=== PATIENT | male | born 1995 | race Caucasian/White ===

== ENCOUNTER 2023-12-23 20:25 | Inpatient (IN) | payer MEDICAID, OTHER ==
[~2023-12-23] VITALS: Ht 162.6 cm; Wt 75.0 kg
[2023-12-23 21:42] LABS: BASOPHILS % (AUTO) 0.7 % (0.0-2.0); EOSINOPHILS % (AUTO) 0 % (1.0-6.0); HEMATOCRIT 40.3 % (41-53); HEMOGLOBIN 13.6 g/dL (13.5-17.5); LYMPHOCYTES # (AUTO) 2.4 K/uL (1.0-4.8); LYMPHOCYTES % (AUTO) 22.1 % (22.0-44.0); MEAN CORPUSCULAR HGB CONC 33.8 G/dL (31.0-37.0); MEAN CORPUSCULAR VOLUME 86 fL (80-100); MONOCYTES # (AUTO) 0.6 K/uL (0.1-1.0); MONOCYTES % (AUTO) 5.5 % (2.0-9.0); NEUTROPHILS # (AUTO) 7.9 K/uL (1.8-7.7); NEUTROPHILS % (AUTO) 71.7 % (40.0-70.0); PLATELET COUNT (AUTO) 468 K/uL (150-450); RED BLOOD CELL COUNT(AUTO) 4.69 MIL/uL (4.50-5.90); RED CELL DISTRIBUTION WIDTH 14.9 % (11.5-14.5); WHITE BLOOD COUNT (AUTO) 11.1 K/uL (4.5-11.0)
[2023-12-23 21:50] LABS: ANION GAP 15 mmol/L (8-16); CALCIUM, TOTAL 8.5 mg/dL (8.8-10.5); CARBON DIOXIDE 28 mmol/L (22-29); CHLORIDE 100 mmol/L (98-107); CREATININE 0.85 mg/dL (0.60-1.30); GLOMERULAR FILTR. RATE CALC > 60 mL/min (>60); GLUCOSE,RANDOM 104 mg/dL (70-110); POTASSIUM 3.8 mmol/L (3.5-5.1); SODIUM SERUM 143 mmol/L (136-145); UREA NITROGEN, BLOOD 6 mg/dL (7-18)
[2023-12-23 21:54] LABS: ALCOHOL, BLOOD (SERUM) 186 mg/dL (0-10)
[2023-12-23 21:55] LABS: ALANINE AMINOTRANSFERASE 48 U/L (12-78); ALBUMIN 4.2 g/dL (3.4-5.0); ALKALINE PHOSPHATASE 65 U/L (46-116); ASPARTATE AMINOTRANSFERASE 48 U/L (15-37); BILIRUBIN,TOTAL 0.5 mg/dL (0.1-1.0); LIPASE 27 U/L (16-77)
[2023-12-23 21:58] LABS: COVID AG,FIA SOURCE NASAL SWAB; TROPONIN I-HIGH SENSITIVITY 13 ng/L (<76)
[2023-12-23 22:15] LABS: SARS-COV2 (COVID) ANTIGEN,FIA Negative (Negative)
[2023-12-23] MEDS: LORazepam 2 MG TABLET PO ONE (23:52)
[2023-12-24] VITALS (8 sets, daily range): BP systolic 133–155; BP diastolic 96–102; PULSE 98–116; RESP 18–20; TEMP 98–98.4; O2SAT 95–100
[2023-12-24] MEDS ORDERED: HALOPERIDOL 5 MG TABLET PO PRN (02:00)
[2023-12-24 08:47] LABS: APPEARANCE,URINE CLEAR (CLEAR); BILIRUBIN,URINE NEGATIVE (NEGATIVE); COLOR,URINE LIGHT YELLOW (YELLOW); GLUCOSE, URINE (UA) NEGATIVE (NEGATIVE); KETONES,URINE =>150 mg/dL (NEGATIVE); LEUKOCYTE ESTERASE ,URINE NEGATIVE (NEGATIVE); NITRATE,URINE NEGATIVE (NEGATIVE); OCCULT BLOOD,URINE NEGATIVE (NEGATIVE); PROTEIN,URINE 30-70 mg/dL (NEGATIVE); SPECIFIC GRAVITIY, URINE 1.016 (1.003-1.030); UROBILINOGEN,URINE <=1.0 mg/dL (<=1.0)
[2023-12-24 08:53] LABS: ALCOHOL, URINE DRUG SCREEN NEGATIVE (NEGATIVE); AMPHET/METH SCREEN,URINE NEGATIVE (NEGATIVE); BARBITURATE SCREEN, URINE NEGATIVE (NEGATIVE); BENZODIAZEPINES SCREEN,URINE NEGATIVE (NEGATIVE); CANNABINOID SCREEN,URINE NEGATIVE (NEGATIVE); COCAINE SCREEN,URINE NEGATIVE (NEGATIVE); METHADONE SCREEN, URINE NEGATIVE (NEGATIVE); OPIATE SCREEN,URINE NEGATIVE (NEGATIVE); PHENCYCLIDINE SCREEN,URINE NEGATIVE (NEGATIVE)
[2023-12-24] MEDS ORDERED: MAG HYDROX/ALUMINUM HYD/SIMETH ES 30 ML SUSPENSION UDCUP PO PRN ×2 (12:04→12:15)
[2023-12-24] MEDS ORDERED: NICOTINE 14 MG/24 HOUR PATCH TD PRN (12:15)
[2023-12-24] MEDS ORDERED: LOPERAMIDE HCL 2 MG CAPSULE PO PRN (12:15)
[2023-12-24] MEDS ORDERED: DOCUSATE SODIUM 100 MG CAPSULE PO PRN (12:15)
[2023-12-24] MEDS ORDERED: IBUPROFEN 400 MG TABLET PO PRN (12:15)
[2023-12-24] MEDS ORDERED: MAGNESIUM HYDROXIDE SUSPENSION 30 ML UDCUP PO PRN (12:15)
[2023-12-24] MEDS ORDERED: CloNIDine HCL 0.1 MG TABLET PO PRN (12:15)
[2023-12-24] MEDS ORDERED: ALBUTEROL SULFATE HFA 90 MCG/PUFF 8 GM INHALER IH PRN (12:15)
[2023-12-24] MEDS ORDERED: GuaiFENesin/D-METHORPHAN [SUGAR-FREE] 200-20MG/10 ML SYRUP UDCUP PO PRN (12:15)
[2023-12-24] MEDS ORDERED: ACETAMINOPHEN 325 MG TABLET PO PRN (12:15)
[2023-12-24] MEDS ORDERED: PETROLATUM,WHITE 28 GM JELLY TP PRN (12:15)
[2023-12-24] MEDS: ONDANSETRON HCL 4 MG TABLET PO PRN (12:19)
[2023-12-24] MEDS: ChlordiazePOXIDE HCL 25 MG CAPSULE PO PRN (12:26)
[2023-12-24] MEDS: LORazepam 2 MG TABLET PO PRN (21:58)
[2023-12-24] MEDS: ZOLPIDEM TARTRATE 10 MG TABLET PO PRN (21:58)
[2023-12-25 02:00] VITALS: BP 150/100; PULSE 105; RESP 18; TEMP 98.4
[2023-12-25 06:00] VITALS: BP 153/102; PULSE 98; RESP 18; TEMP 98.2
[2023-12-25 06:53] VITALS: BP 149/104; PULSE 114; RESP 18; TEMP 98.4; O2SAT 98
[2023-12-25] MEDS ORDERED: ChlordiazePOXIDE HCL 25 MG CAPSULE PO PRN (07:00)
[2023-12-25 08:36] LABS: BASOPHILS % (AUTO) 0.6 % (0.0-2.0); EOSINOPHILS % (AUTO) 2.7 % (1.0-6.0); HEMATOCRIT 45.9 % (41-53); HEMOGLOBIN 15.8 g/dL (13.5-17.5); LYMPHOCYTES # (AUTO) 2.3 K/uL (1.0-4.8); LYMPHOCYTES % (AUTO) 24.6 % (22.0-44.0); MEAN CORPUSCULAR HEMOGLOBIN 29.6 pg (26.0-34.0); MEAN CORPUSCULAR HGB CONC 34.3 G/dL (31.0-37.0); MEAN CORPUSCULAR VOLUME 86 fL (80-100); MONOCYTES # (AUTO) 0.3 K/uL (0.1-1.0); MONOCYTES % (AUTO) 3.5 % (2.0-9.0); NEUTROPHILS # (AUTO) 6.5 K/uL (1.8-7.7); NEUTROPHILS % (AUTO) 68.6 % (40.0-70.0); PLATELET COUNT (AUTO) 363 K/uL (150-450); RED BLOOD CELL COUNT(AUTO) 5.32 MIL/uL (4.50-5.90); RED CELL DISTRIBUTION WIDTH 13.9 % (11.5-14.5); WHITE BLOOD COUNT (AUTO) 9.4 K/uL (4.5-11.0)
[2023-12-25 08:55] LABS: HEMOGLOBIN A1C 5.4 % (3.8-5.6)
[2023-12-25 09:11] LABS: ALANINE AMINOTRANSFERASE 58 U/L (12-78); ALBUMIN 4.2 g/dL (3.4-5.0); ALKALINE PHOSPHATASE 73 U/L (46-116); ANION GAP 10 mmol/L (8-16); ASPARTATE AMINOTRANSFERASE 69 U/L (15-37); BILIRUBIN,TOTAL 1.5 mg/dL (0.1-1.0); CALCIUM, TOTAL 9.9 mg/dL (8.8-10.5); CARBON DIOXIDE 31 mmol/L (22-29); CHLORIDE 95 mmol/L (98-107); CHOL/HDL RATIO 2.2 (4.2-7.3); CHOLESTEROL 278 mg/dL (131-200); GLOMERULAR FILTR. RATE CALC > 60 mL/min (>60); GLUCOSE,RANDOM 127 mg/dL (70-110); HDL CHOLESTEROL 129 mg/dL (40-60); LDL CHOL (CALC.) 118 mg/dL (0-130); POTASSIUM 3.7 mmol/L (3.5-5.1); SODIUM SERUM 136 mmol/L (136-145); THYROID STIMULATING HORMONE 2.48 uIU/mL (0.36-3.74); TOTAL PROTEIN, SERUM 8.5 g/dL (6.4-8.2); TRIGLYCERIDES 154 mg/dL (15-150); UREA NITROGEN, BLOOD 6 mg/dL (7-18)
[2023-12-25 09:51] VITALS: BP 149/99; PULSE 99; RESP 18; TEMP 97.5
[2023-12-25] MEDS: ChlordiazePOXIDE HCL 25 MG CAPSULE PO SCH (11:03)
[2023-12-25] MEDS: SERTRALINE HCL 50 MG TABLET PO SCH (12:30)
[2023-12-25 22:01] VITALS: BP_SYST 147; BP_SYST 149; BP_DIAS 100; BP_DIAS 101; PULSE 101; PULSE 105; RESP 18; TEMP 97.9; O2SAT 97
[2023-12-26 09:41] VITALS: BP 139/94; PULSE 92; RESP 18; TEMP 96; TEMP 97.3; O2SAT 92
[2023-12-26] MEDS: AmLODIPine BESYLATE 2.5 MG TABLET PO SCH (18:07)
[2023-12-26 21:19] VITALS: BP 134/81; PULSE 62; RESP 18; TEMP 98.1
[2023-12-26 22:03] VITALS: BP 124/81; PULSE 62; RESP 18; TEMP 98.1; O2SAT 97
[2023-12-27] MEDS ORDERED: ChlordiazePOXIDE HCL 10 MG CAPSULE PO PRN (07:00)
[2023-12-27 10:33] VITALS: BP 109/66; PULSE 94; RESP 18; TEMP 97.5; O2SAT 96
[2023-12-27 10:44] VITALS: BP 109/66; PULSE 94; RESP 18; TEMP 97.5
[2023-12-27 21:02] VITALS: BP 148/96; PULSE 80; RESP 18; TEMP 97.3; O2SAT 97
[2023-12-27 21:06] VITALS: BP 146/98; PULSE 80; RESP 18; TEMP 97.5
[2023-12-28] MEDS ORDERED: ChlordiazePOXIDE HCL 10 MG CAPSULE PO PRN (07:00)
[2023-12-28 08:20] VITALS: BP 121/81; PULSE 83; RESP 17; TEMP 97.9; O2SAT 97
[2023-12-28 20:38] VITALS: BP 148/87; PULSE 88; RESP 18; TEMP 97.8
[2023-12-28 21:43] VITALS: BP 148/89; PULSE 88; RESP 18; TEMP 97.8; O2SAT 99
[2023-12-29 08:00] VITALS: BP 132/84; PULSE 78; RESP 18; TEMP 97.8; O2SAT 98
[2023-12-29] MEDS ORDERED: SERT-439 PO (09:33)
[2023-12-29] MEDS ORDERED: AMLO2.5T96 PO (10:39)
[2023-12-29 11:13] VITALS: BP 132/84; PULSE 78; RESP 18; TEMP 97.8
== END 2023-12-29 13:35 | disposition home or self-care (01) | DRG 751 ==
LOC: EMS 20:25 → 3EI 12-24 05:37
PROVIDERS: ADMIT Psychiatry & Neurology Child & Adolescent Psychiatry; ATTEND Psychiatry & Neurology Child & Adolescent Psychiatry
PROC: GZHZZZZ Group Psychotherapy (ICD-10-PCS; principal; 2023-12-24)
DX: F33.2 Major depressive disorder, recurrent severe without psychotic features (principal); R45.851 Suicidal ideations; E83.51 Hypocalcemia; R03.0 Elevated blood-pressure reading, without diagnosis of hypertension; Z20.822 Contact with and (suspected) exposure to COVID-19; D72.829 Elevated white blood cell count, unspecified; F10.10 Alcohol abuse, uncomplicated
CPT/HCPCS: 80053; 80061; 80307; 81003; 83036; 83690; 84443; 84484; 85025; 93005; 99285; G0480; Q0162

== ENCOUNTER 2024-05-09 10:01 | Emergency (ER) | payer MEDICAID, OTHER ==
[~2024-05-09] VITALS: Ht 162.6 cm; Wt 80.0 kg
[~2024-05-09 10:01] MED LIST: AMLO2.5T96 PO; SERT-439 PO
[2024-05-09 10:07] VITALS: TEMP 98.3
[2024-05-09] MEDS ORDERED: SERT-440 PO (10:12)
[2024-05-09] MEDS ORDERED: AMLO2.5T29 PO (10:12)
[2024-05-09] MEDS ORDERED: BUPR-49 PO (10:12)
[2024-05-09 10:29] LABS: BASOPHILS % (AUTO) 0.5 % (0.0-2.0); EOSINOPHILS % (AUTO) 0.3 % (1.0-6.0); HEMATOCRIT 42.2 % (41-53); HEMOGLOBIN 13.9 g/dL (13.5-17.5); LYMPHOCYTES # (AUTO) 2.2 K/uL (1.0-4.8); LYMPHOCYTES % (AUTO) 19.9 % (22.0-44.0); MEAN CORPUSCULAR HEMOGLOBIN 26.9 pg (26.0-34.0); MEAN CORPUSCULAR HGB CONC 32.8 G/dL (31.0-37.0); MEAN CORPUSCULAR VOLUME 82 fL (80-100); MONOCYTES # (AUTO) 0.5 K/uL (0.1-1.0); MONOCYTES % (AUTO) 4.7 % (2.0-9.0); NEUTROPHILS # (AUTO) 8.3 K/uL (1.8-7.7); NEUTROPHILS % (AUTO) 74.6 % (40.0-70.0); PLATELET COUNT (AUTO) 556 K/uL (150-450); RED BLOOD CELL COUNT(AUTO) 5.14 MIL/uL (4.50-5.90); RED CELL DISTRIBUTION WIDTH 15.5 % (11.5-14.5); WHITE BLOOD COUNT (AUTO) 11.1 K/uL (4.5-11.0)
[2024-05-09 10:41] LABS: ANION GAP 13 mmol/L (8-16); CALCIUM, TOTAL 9.3 mg/dL (8.8-10.5); CARBON DIOXIDE 28 mmol/L (22-29); CHLORIDE 99 mmol/L (98-107); CREATININE 0.84 mg/dL (0.60-1.30); GLOMERULAR FILTR. RATE CALC > 60 mL/min (>60); GLUCOSE,RANDOM 108 mg/dL (70-110); POTASSIUM 3.8 mmol/L (3.5-5.1); SODIUM SERUM 140 mmol/L (136-145); UREA NITROGEN, BLOOD 7 mg/dL (7-18)
[2024-05-09 10:46] LABS: ALANINE AMINOTRANSFERASE 26 U/L (12-78); ALBUMIN 3.9 g/dL (3.4-5.0); ALKALINE PHOSPHATASE 95 U/L (46-116); ASPARTATE AMINOTRANSFERASE 30 U/L (15-37); BILIRUBIN,TOTAL 0.6 mg/dL (0.1-1.0); TOTAL PROTEIN, SERUM 7.9 g/dL (6.4-8.2)
[2024-05-09 10:52] LABS: ALCOHOL, BLOOD (SERUM) 76 mg/dL (0-10)
[2024-05-09 12:30] VITALS: BP 154/82; PULSE 98; RESP 20; O2SAT 100
[2024-05-09] MEDS: ChlordiazePOXIDE HCL 25 MG CAPSULE PO ONE (12:31)
[2024-05-09] MEDS: ONDANSETRON HCL 4 MG TABLET PO ONE (12:36)
[2024-05-09] MEDS ORDERED: GABA-1181 PO (13:01)
[2024-05-09] MEDS ORDERED: NALT50TA33 PO (13:03)
== END 2024-05-09 13:32 | disposition home or self-care (01) ==
LOC: EMS 10:01
DX: F10.20 Alcohol dependence, uncomplicated (principal); F32.A Depression, unspecified; I10 Essential (primary) hypertension; Y90.9 Presence of alcohol in blood, level not specified
CPT/HCPCS: 99283; 80048; 80076; 85025; 36415; G0480; Q0162

== ENCOUNTER 2024-06-09 11:14 | Inpatient (IN) | payer MEDICAID ==
[~2024-06-09] VITALS: Ht 162.6 cm; Wt 78.4 kg
[~2024-06-09 11:14] MED LIST changes: +AMLO2.5T29 PO; -AMLO2.5T96 PO; +BUPR-49 PO; +GABA-1181 PO; +NALT50TA33 PO; -SERT-439 PO; +SERT-440 PO
[2024-06-09] MEDS ORDERED: HALOPERIDOL 5 MG TABLET PO PRN (12:15)
[2024-06-09] MEDS ORDERED: LORazepam 2 MG TABLET PO PRN (12:15)
[2024-06-09] MEDS ORDERED: ZOLPIDEM TARTRATE 10 MG TABLET PO PRN (12:15)
[2024-06-09 16:05] VITALS: BP 142/92; PULSE 91; RESP 18; TEMP 97.5; O2SAT 98
[2024-06-09] MEDS ORDERED: INFLUENZA VIRUS VACCINE TVS (6MO+) 2024-25/PF 45 MCG/0.5 ML SYRINGE IM. ONE (19:45)
[2024-06-09 21:12] VITALS: BP 138/90; PULSE 100; RESP 18; TEMP 97.8; O2SAT 100
[2024-06-09 21:33] VITALS: BP 138/95; PULSE 90; RESP 18; TEMP 97.5; O2SAT 100
[2024-06-10 08:39] VITALS: BP 153/95; PULSE 85; RESP 16; TEMP 97.5; O2SAT 99
[2024-06-10] MEDS ORDERED: MAGNESIUM HYDROXIDE SUSPENSION 30 ML UDCUP PO PRN (09:00)
[2024-06-10] MEDS ORDERED: BENZOCAINE/MENTHOL LOZENGE PO PRN (09:00)
[2024-06-10] MEDS ORDERED: DOCUSATE SODIUM 100 MG CAPSULE PO PRN (09:00)
[2024-06-10] MEDS ORDERED: ONDANSETRON 4 MG TABLET PO PRN (09:00)
[2024-06-10] MEDS ORDERED: CloNIDine HCL 0.1 MG TABLET PO PRN (09:00)
[2024-06-10] MEDS ORDERED: IBUPROFEN 600 MG TABLET PO PRN (09:00)
[2024-06-10] MEDS ORDERED: MAG HYDROX/ALUMINUM HYD/SIMETH ES 30 ML SUSPENSION UDCUP PO PRN (09:00)
[2024-06-10] MEDS ORDERED: LOPERAMIDE HCL 2 MG CAPSULE PO PRN (09:00)
[2024-06-10] MEDS ORDERED: ALBUTEROL SULFATE HFA 90 MCG/PUFF 8 GM INHALER IH PRN (09:00)
[2024-06-10] MEDS ORDERED: OMEPRAZOLE 20 MG CAPSULE PO PRN (09:00)
[2024-06-10] MEDS ORDERED: PETROLATUM,WHITE 28 GM JELLY TP PRN (09:00)
[2024-06-10] MEDS ORDERED: ACETAMINOPHEN 325 MG TABLET PO PRN (09:00)
[2024-06-10] MEDS ORDERED: BACITRACIN 28 GM OINTMENT TP PRN (09:00)
[2024-06-10] MEDS: AmLODIPine BESYLATE 2.5 MG TABLET PO SCH (09:11)
[2024-06-10] MEDS: GABAPENTIN 300 MG CAPSULE PO SCH (09:11)
[2024-06-10 09:15] VITALS: BP 153/95; PULSE 85; RESP 16; TEMP 97.5; O2SAT 99
[2024-06-10] MEDS ORDERED: GABA-1181 PO (18:03)
== END 2024-06-10 19:26 | disposition home or self-care (01) | DRG 754 ==
LOC: 3EI 16:03
PROVIDERS: ADMIT Psychiatry & Neurology Psychiatry; ATTEND Psychiatry & Neurology Psychiatry
DX: F32.9 Major depressive disorder, single episode, unspecified (principal); R45.851 Suicidal ideations; F10.10 Alcohol abuse, uncomplicated; G47.00 Insomnia, unspecified; I10 Essential (primary) hypertension; K21.9 Gastro-esophageal reflux disease without esophagitis; K59.00 Constipation, unspecified; F41.9 Anxiety disorder, unspecified
CPT/HCPCS: 87081; Z7610

== ENCOUNTER 2025-07-29 23:00 | Emergency (ER) | payer OTHER ==
[~2025-07-29] VITALS: Ht 162.6 cm; Wt 83.6 kg
[~2025-07-29 23:00] MED LIST changes: +AMLO-257 PO; -AMLO2.5T29 PO; +AMLO5TAB66 PO; -BUPR-49 PO; +ESCI-8 PO; +FOLI-130 PO; -GABA-1181 PO; +LORA1TAB25 PO; +MULT-1192 PO; -NALT50TA33 PO; -SERT-440 PO; +THIA100T80 PO
[2025-07-29 23:03] VITALS: BP 139/97; PULSE 111; RESP 18; TEMP 98; O2SAT 97
== END 2025-07-30 00:07 | disposition left against medical advice (07) ==
LOC: EMS 23:00
DX: F10.129 Alcohol abuse with intoxication, unspecified (principal); Z53.21 Procedure and treatment not carried out due to patient leaving prior to being seen by health care provider; Y90.9 Presence of alcohol in blood, level not specified
CPT/HCPCS: 80307; 81001; 99281